=== PATIENT | female | born 1940 | race Caucasian/White ===

== ENCOUNTER 2018-04-05 09:29 | Inpatient (IN) | payer MEDICARE, OTHER, SELFPAY ==
[2018-04-05] VITALS (9 sets, daily range): BP systolic 109–177; BP diastolic 43–129; PULSE 86–116; RESP 12–18; TEMP 36.6–37.4; O2SAT 93–98; BMI 22.8; BMI 25.0
--- NOTE | 2018-04-05 09:59 | ED.DCSUM_ITS ---
- ER Visit Summary Date of Service: 04/05/18 Chief Complaint: Infected left hand dog bite History of Present Illness: The patient is a 77 F history of osteoporosis and hypothyroidism. She is not diabetic. Patient was playing with her dog last night and it accidentally bit her on the left hand. Since it has been red and swollen. She said she has had some puslike discharge. Patient is right-hand dominant. Physical Examination: Well-appearing older female. Vital signs are stable. She is afebrile. She does not look septic toxic. She is in no acute distress. HEENT exam unremarkable. Neck nontender. Lungs clear to auscultation bilaterally. Heart regular rhythm no murmur. Abdomen soft and nontender. Patient is moving all 4 extremities. She is a dog bite wound on the dorsum of her left hand by the webspace of the left thumb and index finger. The area is red and swollen. It does extend up into the forearm. There is no axillary lymphadenopathy. There are no gross bony deformities. She can flex and extend the left hand. Normal touch sensation. The left thumb index and long finger along the dorsum more red and tender. Test Results: CBC shows a white count of 20,000. H&H 14/42. 90% segs. Electrolytes unremarkable. Gap of 10. Creatinine of 1. Emergency Department Course and Treatment: Patient be started on IV Unasyn. Treatment Plan: I will speak to the hospitalist about admission. Disposition: Admission Impression: Acute left hand cellulitis status post dog bite This note was generated with [employer] dictation software. It may contain incorrect words, spelling, and punctuation that were not noted in review of the chart prior to signing ED Disposition - Plan for ED Patient: Chief Complaint: Bite Referrals: NOT,DEFINED [NON-STAFF] -
--- NOTE | 2018-04-05 10:15 | ED.RN ---
CALLED PHARMACY FOR ATKatelyn.
[2018-04-05 10:23] LABS: Absolute Lymphocyte Count 0.52 X10^3/ul (0.83-4.51); Absolute Neutrophil Count 18.5 X10^3/uL (2.0-7.7); Basophil# 0.02 X10^3/uL; Basophil% 0.1 % (0-1); Differential Indicated SCAN CRITERIA MET; Hematocrit 42.6 % (37-47); Hemoglobin 14.2 g/dl (12.0-15.0); Lymphocyte # 0.52 X10^3/ul (4.0); Lymphocyte % 2.5 % (19-41); Mean Corp Hgb Conc 33.3 g/gl (32-36); Mean Corpuscular Hgb 32.2 pg (27.0-32.0); Mean Corpuscular Volume 96.6 fL (81-99); Mean Platelet Vol. 9.7 fl (6.2-12.0); Monocyte# 1.34 X10^3/uL; Monocyte% 6.6 % (0-10); Neutrophil # 18.46 X10^3/uL (2.7-7.7); Neutrophil % 90.5 % (47-70); POSITIVE COUNT NO; POSITIVE DIFFERENTIAL YES; POSITIVE MORPHOLOGY NO; Platelet Count 265 K/mm3 (150-450); RBC Distribution Width SD 48.2 fl (35.1-43.9); Red Blood Count 4.41 M/mm3 (4.2-5.4); White Blood Count 20.4 K/mm3 (4.4-11.0)
[2018-04-05 10:32] LABS: Anion Gap 10 (5-15); BUN 15 mg/dL (7-18); BUN/Creat Ratio 14.2 RATIO (10-20); Calcium,Total 8.7 mg/dL (8.5-10.1); Chloride 102 mmol/L (98-107); Creatinine, Serum 1.06 mg/dL (0.55-1.02); EST Glomerular Filtration Rate 53 mL/min (>60); Est Glom Filt Rate - Afr Amer 64 mL/min (>60); Estimated Creatinine Clearance 34.04 ml/min; Glucose 120 mg/dL (74-106); Potassium 3.7 mmol/L (3.5-5.1); Sodium Level 136 mmol/L (136-145)
[2018-04-05 10:42] LABS: Differential Comment SCANNED
--- NOTE | 2018-04-05 10:48 | NURSING ---
DR DELMY GALVAN
--- NOTE | 2018-04-05 10:57 | NURSING ---
MED SURG OBS LT HAND CELLULITIS, S/P DOG BITE KITTOE
--- NOTE | 2018-04-05 11:03 | HP.PCM_ITS ---
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 Patient symptoms began the night prior to coming in. She was apparently bitten by her dog. According to the patient she did wash her hand with soap and applied a topical antibiotic however pain persisted throughout the whole night and upon waking up on the day of admission did notice significant swelling. She presented to the emergency department and assessment of cellulitis secondary to dog bite was made. She was started on Unasyn and admitted to regular nursing floor for further management Past Medical History Past Medical History (Chronic Problems): Chronic Problems Hypothyroidism (Chronic) Osteoporosis (Chronic) Generalized osteoarthritis of multiple sites (Chronic) Allergies nitrofurantoin [From Macrodantin] Allergy (Verified 04/05/18 09:35) Chest tightness terbinafine Adverse Reaction (Verified 04/05/18 09:35) Diarrhea Home Medications: Ambulatory Orders Medication Instructions Recorded Alendronate Sodium [Fosamax] 70 mg PO QWEEK 04/05/18 Aspirin 325 mg PO DAILY@0800 04/05/18 Cyanocobalamin (Vitamin B-12) 1,000 mcg PO DAILY 04/05/18 [B-12] Levothyroxine Sodium [Synthroid] 1 tab PO DAILY 04/05/18 Smoking Status: Unknown if ever smoked Review of Systems Constitutional: Denies: Anorexia, Chills, Fever, Night Sweats, Weight Change HEENT: Denies: Head Aches, Sinus Congestion, Sinus Drainage Cardiovascular: Denies: Chest Pain, Orthopnea, Palpitations, Paroxysmal Noc. Dyspnea Respiratory: Denies: Cough, Shortness of breath at rest, Shortness of breath upon exertion, Sputum production Gastrointestinal: Denies: Abdominal Pain, Hematemesis, Hematochezia, Nausea, Melena, Vomiting Genitourinary: Denies: Dysuria, Frequency, Hematuria, Urgency Musculoskeletal: Reports: Hand Pain, Joint Pain Skin: Denies: Rash Neurological: Denies: Focal weakness, Numbness, Tingling Psychiatric: Denies: Homicidal Ideations, Suicidal Ideations Hematologic/ Lymphatic: Denies: Easy Bruising, Easy Bleeding VTE Information - Inpt Only VTE Present on Admission: No VTE Mechan Device Prophylaxis: Knee High ELISE Hose VTE Pharm Prophylaxis ordered?: Yes Patient Problems: Active and Suspected Problems Dog bite of hand (Acute) Objective: GENERAL: cooperative HEENT: Atraumatic; moist oral mucosa EYES; Anicteric, Normal Conjunctiva NECK; supple, normal thyroid, no distended JVD. RESPIRATORY: Diminished to auscultation bilaterally, CARDIOVASCULAR: Regular S1 S2, no audible murmurs GI: soft, non-tender, normoactive bowel sounds, : No Renal angle tenderness; EXTREMITIES: Area of erythema and swelling over the dorsal surface of the for a middle finger with 3 puncture wounds involving the left hand MUSCULOSKELETAL: No Joint Tenderness; no muscle waisting NEURO: Awake; no lateralizing signs. SKIN: Described above PSYCH; Normal affect - Physical Exam Vital Signs Temp Pulse Resp BP Pulse Ox 98 F 96 12 113/68 97 04/05/18 10:33 04/05/18 10:33 04/05/18 10:33 04/05/18 10:33 04/05/18 10:33 Oxygen Delivery Method Room Air Weight: 56.699 kg Body Mass Index (BMI) 22.8 Laboratory Tests Past 24 Hrs 04/05/18 04/05/18 10:15 10:15 WBC 20.4 H RBC 4.41 Hgb 14.2 Hct 42.6 MCV 96.6 MCH 32.2 H MCHC 33.3 RDW 14.0 RDW Differential 48.2 H Plt Count 265 MPV 9.7 Immature Gran % (Auto) 0.300 Neut % (Auto) 90.5 H Lymph % (Auto) 2.5 L [place] % (Auto) 6.6 Eos % (Auto) 0.0 Baso % (Auto) 0.1 Absolute Neuts (auto) 18.5 H Absolute Lymphs (auto) 0.52 L Total Counted Not Reportable Differential Comment SCANNED Sodium 136 Potassium 3.7 Chloride 102 Carbon Dioxide 24.0 Anion Gap 10 BUN 15 Creatinine 1.06 H Estim Creat Clear Calc 34.04 Est GFR (MDRD) Af Amer 64 Est GFR (MDRD) Non-Af 53 L BUN/Creatinine Ratio 14.2 Glucose 120 H Calcium 8.7 Assessment/Plan All Active Problems Dog bite of hand (Acute) Patient is a 77-year-old lady who presented with left hand pain following a dog bite a day prior to his admission 1. Dog bite involving the left hand with resultant cellulitis: Patient has been admitted to regular nursing floor was started on the Unasyn 2. Hypothyroidism-patient is on levothyroxine home dose continued 3. Generalized osteoarthritis; pain meds as needed 4. Osteoporosis 5. DVT prophylaxis SC Lovenox Advance planning; did discuss with the patient and family regarding her advanced directives as well as CODE STATUS. Did explain the various modalities involved ( FULL CODE, DNR CCA, DNR CCA with no intubation, and DNR CC ) patient elected to be DNR CCA no intubation. Order was placed. Time spent on discussion 20 minutes. Code Visit Inpatient E&M: 80633 Subs Hosp L3 Procedures: 96988 Advncd Care Plan 30 Min
[2018-04-05] MEDS: 0.9% Normal Saline 1,000 ML 100 ML IV ×2 (13:46→23:54)
[2018-04-05] MEDS: Acetaminophen 325 MG Tablet 650 MG PO (19:58)
[2018-04-05 21:41] LABS: Bedside Glucose 106 mg/dL (70-110)
[2018-04-06 03:30] VITALS: BP 116/76; PULSE 75; RESP 16; TEMP 36.9; O2SAT 96
[2018-04-06] MEDS: Levothyroxine 75 MCG Tablet PO (06:08)
[2018-04-06 06:21] LABS: Bedside Glucose 90 mg/dL (70-110)
[2018-04-06 06:44] LABS: Absolute Lymphocyte Count 1.75 X10^3/ul (0.83-4.51); Absolute Neutrophil Count 9.5 X10^3/uL (2.0-7.7); Basophil# 0.02 X10^3/uL; Basophil% 0.2 % (0-1); Eosinophil# 0.04 X10^3/uL; Eosinophils% 0.3 % (0-5); Hematocrit 36.1 % (37-47); Hemoglobin 11.9 g/dl (12.0-15.0); Lymphocyte # 1.75 X10^3/ul (4.0); Lymphocyte % 14.1 % (19-41); Mean Corpuscular Hgb 32.2 pg (27.0-32.0); Mean Corpuscular Volume 97.8 fL (81-99); Mean Platelet Vol. 9.7 fl (6.2-12.0); Monocyte# 1.12 X10^3/uL; Neutrophil # 9.45 X10^3/uL (2.7-7.7); Neutrophil % 76.2 % (47-70); Platelet Count 225 K/mm3 (150-450); RBC Distribution Width CV 14.2 % (11.6-14.6); Red Blood Count 3.69 M/mm3 (4.2-5.4); White Blood Count 12.4 K/mm3 (4.4-11.0)
[2018-04-06 06:50] LABS: POSITIVE COUNT NO; POSITIVE DIFFERENTIAL NO; POSITIVE MORPHOLOGY NO
[2018-04-06 07:02] LABS: Anion Gap 9 (5-15); BUN 15 mg/dL (7-18); BUN/Creat Ratio 17.2 RATIO (10-20); Calcium,Total 7.9 mg/dL (8.5-10.1); Chloride 114 mmol/L (98-107); Creatinine, Serum 0.87 mg/dL (0.55-1.02); EST Glomerular Filtration Rate 67 mL/min (>60); Est Glom Filt Rate - Afr Amer 81 mL/min (>60); Estimated Creatinine Clearance 41.47 ml/min; Glucose 87 mg/dL (74-106); Potassium 3.8 mmol/L (3.5-5.1); Sodium Level 144 mmol/L (136-145)
--- NOTE | 2018-04-06 07:31 | PN_ITS ---
Patient Problems: Active and Suspected Problems Dog bite of hand (Acute) Subjective: Patient seen reports decrease in size of the erythematous area and swelling involving the dorsal surface of the left hand. Her WBC count is also trending down Objective: GENERAL: cooperative HEENT: Atraumatic; moist oral mucosa EYES; Anicteric, Normal Conjunctiva NECK; supple, normal thyroid, no distended JVD. RESPIRATORY: Diminished to auscultation bilaterally, CARDIOVASCULAR: Regular S1 S2, no audible murmurs GI: soft, non-tender, normoactive bowel sounds, : No Renal angle tenderness; EXTREMITIES: Area of erythema and swelling over the dorsal surface of the for a middle finger with 3 puncture wounds involving the left hand MUSCULOSKELETAL: No Joint Tenderness; no muscle waisting NEURO: Awake; no lateralizing signs. SKIN: Described above PSYCH; Normal affect Vitals/I&O's: Vital Signs Temp Pulse Resp BP Pulse Ox 98.4 F 75 16 116/76 96 04/06/18 03:30 04/06/18 03:30 04/06/18 03:30 04/06/18 03:30 04/06/18 03:30 Oxygen Delivery Method Room Air Weight: 62.142 kg Body Mass Index (BMI) 25.0 Intake and Output for Last 24 Hours 04/04/18 04/05/18 04/06/18 23:59 23:59 23:59 Intake Total 1583 / 1583 847 / 847 Balance 1583 / 1583 847 / 847 Laboratory Results 04/05/18 10:15: WBC 20.4 H, RBC 4.41, Hgb 14.2, Hct 42.6, MCV 96.6, MCH 32.2 H, MCHC 33.3, RDW 14.0, RDW Differential 48.2 H, Plt Count 265, MPV 9.7, Immature Gran % (Auto) 0.300, Neut % (Auto) 90.5 H, Lymph % (Auto) 2.5 L, [place] % (Auto) 6.6, Eos % (Auto) 0.0, Baso % (Auto) 0.1, Absolute Neuts (auto) 18.5 H, Absolute Lymphs (auto) 0.52 L, Total Counted Not Reportable, Differential Comment SCANNED 04/05/18 10:15: Sodium 136, Potassium 3.7, Chloride 102, Carbon Dioxide 24.0, Anion Gap 10, BUN 15, Creatinine 1.06 H, Estim Creat Clear Calc 34.04, Est GFR (MDRD) Af Amer 64, Est GFR (MDRD) Non-Af 53 L, BUN/Creatinine Ratio 14.2, Glucose 120 H, Calcium 8.7 04/05/18 21:33: POC Glucose 106 04/06/18 06:14: POC Glucose 90 04/06/18 06:30: WBC 12.4 H, RBC 3.69 L, Hgb 11.9 L, Hct 36.1 L, MCV 97.8, MCH 32.2 H, MCHC 33.0, RDW 14.2, RDW Differential 49.0 H, Plt Count 225, MPV 9.7, Immature Gran % (Auto) 0.200, Neut % (Auto) 76.2 H, Lymph % (Auto) 14.1 L, [place] % (Auto) 9.0, Eos % (Auto) 0.3, Baso % (Auto) 0.2, Absolute Neuts (auto) 9.5 H, Absolute Lymphs (auto) 1.75, Total Counted Not Reportable 04/06/18 06:30: Sodium 144, Potassium 3.8, Chloride 114 H, Carbon Dioxide 21.0, Anion Gap 9, BUN 15, Creatinine 0.87, Estim Creat Clear Calc 41.47, Est GFR (MDRD) Af Amer 81, Est GFR (MDRD) Non-Af 67, BUN/Creatinine Ratio 17.2, Glucose 87, Calcium 7.9 L Current Medications Acetaminophen (Tylenol) 650 mg PO Q6H PRN PRN PRN Reason: Mild Pain (1-3)/Temp > 100.7 F Last Admin: 04/05/18 19:58 Dose: 650 mg Al Hydroxide/Mg Hydroxide (Mylanta Ii) 30 ml PO Q6H PRN PRN PRN Reason: Gastric burning Aspirin (Aspirin) 325 mg PO DAILY@0800 [facility] Dextrose (D50w Syringe) 0 gm IV X1 PRN; Protocol PRN Reason: Hypoglycemia Enoxaparin Sodium (Lovenox) 40 mg SC DAILY@1000 [facility] Glucagon () 1 mg IM .X1 PRN PRN Reason: Hypoglycemia Sodium Chloride () 1,000 mls @ 100 mls/hr IV .Q10H [facility] Last Admin: 04/05/18 23:54 Dose: 100 mls/hr Ampicillin Sodium/Sulbactam (Sodium 3 gm/ Sodium Chloride) 112 mls @ 150 mls/hr IV Q8 [facility] Last Admin: 04/06/18 06:08 Dose: 150 mls/hr Levothyroxine Sodium (Synthroid) 75 mcg PO DAILY@0600 [facility] Last Admin: 04/06/18 06:08 Dose: 75 mcg Magnesium Hydroxide (Milk Of Magnesia) 30 ml PO DAILY PRN PRN PRN Reason: Constipation Morphine Sulfate () 2 - 4 mg IV Q4H PRN PRN PRN Reason: MOD-SEVERE PAIN (4-10/10) Ondansetron HCl (Zofran) 4 mg IV Q8H PRN PRN PRN Reason: NAUSEA Oxycodone HCl (Oxyir) 5 - 10 mg PO Q4H PRN PRN PRN Reason: MOD-SEVERE PAIN (4-10/10) Psyllium Hydrophilic Mucilloid (Metamucil) 1 packet PO DAILY PRN PRN PRN Reason: CONSTIPATION Zolpidem Tartrate (Ambien (Generic)) 5 mg PO QHS PRN PRN PRN Reason: INSOMNIA Medical Necessity - Tobacco Use Smoking Status: Unknown if ever smoked Assessment/Plan All Active Problems Dog bite of hand (Acute) Patient is a 77-year-old lady who presented with left hand pain following a dog bite a day prior to his admission 1. Dog bite involving the left hand with resultant cellulitis: Patient has been admitted to regular nursing floor was started on the Unasyn. Patient appears to be continue treatment. Cultures were sent on 04/05/2018 awaiting results 2. Hypothyroidism-patient is on levothyroxine home dose continued 3. Generalized osteoarthritis; pain meds as needed 4. Osteoporosis 5. DVT prophylaxis SC Lovenox Code Visit Inpatient E&M: 67069 Subs Hosp L2
[2018-04-06 08:29] VITALS: BP 144/74; PULSE 92; RESP 18; TEMP 37.3; O2SAT 96
[2018-04-06] MEDS: Aspirin 325 MG Tablet PO (08:47)
--- NOTE | 2018-04-06 10:00 | CM.UR ---
See egg packer. Met face to face with patient and her . Introduced myself and my role here at [facility]. Agreed to assessment at this time. Has LW and DPOA at home. Verb understanding to bring in to hospital. She was given list of local doctors. States she doesn't want to go to [facility] and plans to come to [facility] instead of [facility] so will establish with [place] provider. Denies anticipating any further needs for discharged. Instructed that case management will remain available should any needs arise. Verb understanding. Serena Reese, RN, [facility].
[2018-04-06] MEDS: Enoxaparin 40 MG/0.4 ML Syringe SC (10:45)
[2018-04-06] MEDS: 0.9% Normal Saline 1,000 ML 100 ML IV ×2 (10:47→22:20)
[2018-04-06 14:30] VITALS: BP 128/68; PULSE 81; RESP 16; TEMP 37; O2SAT 96
[2018-04-06] MEDS: Acetaminophen 325 MG Tablet 650 MG PO (14:42)
[2018-04-06 20:00] VITALS: RESP 15
[2018-04-06 20:30] VITALS: BP 147/83; PULSE 73; RESP 15; TEMP 36.8; O2SAT 97
[2018-04-07 02:00] VITALS: RESP 15
[2018-04-07 05:07] VITALS: BP 145/89; PULSE 84; RESP 15; TEMP 37.1; O2SAT 98
[2018-04-07] MEDS: Levothyroxine 75 MCG Tablet PO (05:39)
--- NOTE | 2018-04-07 08:43 | PCM.PN.HOSP ---
Patient Problems: Active and Suspected Problems Dog bite of hand (Acute) Subjective: Patient seen has some residual swelling involving the dorsal surface of the left hand. Cultures obtained on admission so far positive for gram-negative rods final identification and sensitivities pending Objective: GENERAL: cooperative HEENT: Atraumatic; moist oral mucosa EYES; Anicteric, Normal Conjunctiva NECK; supple, normal thyroid, no distended JVD. RESPIRATORY: Diminished to auscultation bilaterally, CARDIOVASCULAR: Regular S1 S2, no audible murmurs GI: soft, non-tender, normoactive bowel sounds, : No Renal angle tenderness; EXTREMITIES: Area of erythema and swelling over the dorsal surface of the for a middle finger with 3 puncture wounds involving the left hand; swelling generally decreasing MUSCULOSKELETAL: Movement restricted in the left fingers NEURO: Awake; no lateralizing signs. SKIN: Described above PSYCH; Normal affect Vitals/I&O's: Vital Signs Temp Pulse Resp BP Pulse Ox 98.7 F 84 15 145/89 H 98 04/07/18 05:07 04/07/18 05:07 04/07/18 05:07 04/07/18 05:07 04/07/18 05:07 Oxygen Delivery Method Room Air Weight: 62.142 kg Body Mass Index (BMI) 25.0 Intake and Output for Last 24 Hours 04/05/18 04/06/18 04/07/18 23:59 23:59 23:59 Intake Total 1583 / 1583 2995 / 2995 1415 / 1415 Balance 1583 / 1583 2995 / 2995 1415 / 1415 Microbiology Past 72 Hours 04/05/18 17:35 Bite, Dog Gram Stain - Final 04/05/18 17:35 Bite, Dog Wound Culture - Preliminary Gram negative davion Current Medications Acetaminophen (Tylenol) 650 mg PO Q6H PRN PRN PRN Reason: Mild Pain (1-3)/Temp > 100.7 F Last Admin: 04/06/18 14:42 Dose: 650 mg Al Hydroxide/Mg Hydroxide (Mylanta Ii) 30 ml PO Q6H PRN PRN PRN Reason: Gastric burning Aspirin (Aspirin) 325 mg PO DAILY@0800 [facility] Last Admin: 04/06/18 08:47 Dose: 325 mg Enoxaparin Sodium (Lovenox) 40 mg SC DAILY@1000 [facility] Last Admin: 04/06/18 10:45 Dose: 40 mg Sodium Chloride () 1,000 mls @ 100 mls/hr IV .Q10H [facility] Last Admin: 04/06/18 22:20 Dose: 100 mls/hr Ampicillin Sodium/Sulbactam (Sodium 3 gm/ Sodium Chloride) 112 mls @ 150 mls/hr IV Q8 [facility] Last Admin: 04/07/18 05:10 Dose: 150 mls/hr Levothyroxine Sodium (Synthroid) 75 mcg PO DAILY@0600 [facility] Last Admin: 04/07/18 05:39 Dose: 75 mcg Magnesium Hydroxide (Milk Of Magnesia) 30 ml PO DAILY PRN PRN PRN Reason: Constipation Morphine Sulfate () 2 - 4 mg IV Q4H PRN PRN PRN Reason: MOD-SEVERE PAIN (4-1010) Ondansetron HCl (Zofran) 4 mg IV Q8H PRN PRN PRN Reason: NAUSEA Oxycodone HCl (Oxyir) 5 - 10 mg PO Q4H PRN PRN PRN Reason: MOD-SEVERE PAIN (4-1010) Psyllium Hydrophilic Mucilloid (Metamucil) 1 packet PO DAILY PRN PRN PRN Reason: CONSTIPATION Zolpidem Tartrate (Ambien (Generic)) 5 mg PO QHS PRN PRN PRN Reason: INSOMNIA Medical Necessity - Tobacco Use Smoking Status: Unknown if ever smoked Assessment/Plan All Active Problems Dog bite of hand (Acute) Patient is a 77-year-old lady who presented with left hand pain following a dog bite a day prior to his admission 1. Dog bite involving the left hand with resultant cellulitis: Patient has been admitted to regular nursing floor was started on the Unasyn. Patient appears to be continue treatment. Cultures were sent on 04/05/2018 result so far positive for gram-negative rods final identification and sensitivities pending 2. Hypothyroidism-patient is on levothyroxine home dose continued 3. Generalized osteoarthritis; pain meds as needed 4. Osteoporosis 5. DVT prophylaxis SC Lovenox Microbiology 04/05/18 17:35 Gram Stain - Final Bite, Dog Wound Culture - Preliminary Gram negative davion Active Medications Acetaminophen (Tylenol) 650 mg PO Q6H PRN PRN PRN Reason: Mild Pain (1-3)/Temp > 100.7 F Last Admin: 04/06/18 14:42 Dose: 650 mg Al Hydroxide/Mg Hydroxide (Mylanta Ii) 30 ml PO Q6H PRN PRN PRN Reason: Gastric burning Aspirin (Aspirin) 325 mg PO DAILY@0800 [facility] Last Admin: 04/06/18 08:47 Dose: 325 mg Enoxaparin Sodium (Lovenox) 40 mg SC DAILY@1000 [facility] Last Admin: 04/06/18 10:45 Dose: 40 mg Sodium Chloride () 1,000 mls @ 100 mls/hr IV .Q10H [facility] Last Admin: 04/06/18 22:20 Dose: 100 mls/hr Ampicillin Sodium/Sulbactam (Sodium 3 gm/ Sodium Chloride) 112 mls @ 150 mls/hr IV Q8 [facility] Last Admin: 04/07/18 05:10 Dose: 150 mls/hr Levothyroxine Sodium (Synthroid) 75 mcg PO DAILY@0600 [facility] Last Admin: 04/07/18 05:39 Dose: 75 mcg Magnesium Hydroxide (Milk Of Magnesia) 30 ml PO DAILY PRN PRN PRN Reason: Constipation Morphine Sulfate () 2 - 4 mg IV Q4H PRN PRN PRN Reason: MOD-SEVERE PAIN (4-10/10) Ondansetron HCl (Zofran) 4 mg IV Q8H PRN PRN PRN Reason: NAUSEA Oxycodone HCl (Oxyir) 5 - 10 mg PO Q4H PRN PRN PRN Reason: MOD-SEVERE PAIN (4-10/10) Psyllium Hydrophilic Mucilloid (Metamucil) 1 packet PO DAILY PRN PRN PRN Reason: CONSTIPATION Zolpidem Tartrate (Ambien (Generic)) 5 mg PO QHS PRN PRN PRN Reason: INSOMNIA Code Visit Inpatient E&M: 47624 Subs Hosp L2
[2018-04-07] MEDS: Aspirin 325 MG Tablet PO (08:53)
[2018-04-07] MEDS: 0.9% Normal Saline 1,000 ML 100 ML IV (08:53)
[2018-04-07] MEDS: Enoxaparin 40 MG/0.4 ML Syringe SC (08:53)
[2018-04-07 08:56] VITALS: BP 147/86; PULSE 82; RESP 18; TEMP 37.1; O2SAT 97
--- NOTE | 2018-04-07 09:06 | PCA ---
RN IN WITH PT
[2018-04-07 09:20] VITALS: PULSE 89
[2018-04-07 14:17] VITALS: BP 132/72; PULSE 81; RESP 16; TEMP 37; O2SAT 95
[2018-04-07] MEDS: Acetaminophen 325 MG Tablet 650 MG PO (18:34)
[2018-04-07 20:34] VITALS: BP 143/84; PULSE 75; RESP 16; TEMP 37.1; O2SAT 97
[2018-04-08 03:31] VITALS: BP 155/72; PULSE 71; RESP 16; TEMP 36.6; O2SAT 95
[2018-04-08] MEDS: Levothyroxine 75 MCG Tablet PO (06:15)
[2018-04-08 08:20] VITALS: BP 156/97; PULSE 93; RESP 16; TEMP 37.1; O2SAT 98
[2018-04-08] MEDS: Acetaminophen 325 MG Tablet 650 MG PO (08:23)
[2018-04-08] MEDS: Aspirin 325 MG Tablet PO (08:24)
--- NOTE | 2018-04-08 09:14 | PCM.PN.HOSP ---
Patient Problems: Active and Suspected Problems Dog bite of hand (Acute) Subjective: Patient was seen and examined. Pain in the left hand is controlled. Reports feeling a little depressed. Denies any fever or chills or chest pain or palpitations. Vitals/I&O's: Vital Signs Temp Pulse Resp BP Pulse Ox 98.8 F 93 16 156/97 H 98 04/08/18 08:20 04/08/18 08:20 04/08/18 08:20 04/08/18 08:20 04/08/18 08:20 Oxygen Delivery Method Room Air Weight: 62.142 kg Body Mass Index (BMI) 25.0 Intake and Output for Last 24 Hours 04/06/18 04/07/18 04/08/18 23:59 23:59 23:59 Intake Total 2995 / 2995 3615 / 3615 497 / 497 Balance 2995 / 2995 3615 / 3615 497 / 497 General: Alert, Oriented x3, Cooperative, No apparent distress HEENT: Atraumatic, PERRLA, EOMI, Normocephalic Oral: Moist Mucosa Neck: Supple, No JVD Lungs: Clear to auscultation, Normal air movement Cardiovascular: Regular rate, Regular Rhythm, Normal S1, Normal S2, No murmurs Abdomen: Bowel Sounds Present, Soft, Non Tender, Non-Distended, No Hepato-splenomegaly Extremities: Edema - Left hand and wrist region are erythematous and swollen, skin demarcated, erythema not worsening, wrinkles seen on the skin indicating resolving edema. There is an area on the lateral aspect of the second metatarsal region that has a pinpoint area of scabbing with underlining purulent region, slightly fluctuant Skin: - - See note under extremities Musculoskeletal: No Tenderness to Palpation of Joints or Extremities, - - Srikanth deformities of the joints of the hand, ?ulnar deviation of both hands Neurological: Cranial nerves II-XII grossly intact, Neuro grossly intact Psych/Mental Status: Normal Affect, Appropriate Microbiology Past 72 Hours 04/05/18 17:35 Bite, Dog Gram Stain - Final 04/05/18 17:35 Bite, Dog Wound Culture - Final Acinetobacter Lwoffi Pasteurella multocida 04/05/18 12:53 Blood Culture (Wb) - No Site/Description Given Blood Culture - Preliminary No growth in 48 hours. 04/05/18 12:45 Blood Culture (Wb) - Anticubital Right Blood Culture - Preliminary No growth in 48 hours. Current Medications Acetaminophen (Tylenol) 650 mg PO Q6H PRN PRN PRN Reason: Mild Pain (1-3)/Temp > 100.7 F Last Admin: 04/08/18 08:23 Dose: 650 mg Al Hydroxide/Mg Hydroxide (Mylanta Ii) 30 ml PO Q6H PRN PRN PRN Reason: Gastric burning Aspirin (Aspirin) 325 mg PO DAILY@0800 [facility] Last Admin: 04/08/18 08:24 Dose: 325 mg Enoxaparin Sodium (Lovenox) 40 mg SC DAILY@1000 [facility] Last Admin: 04/07/18 08:53 Dose: 40 mg Ampicillin Sodium/Sulbactam (Sodium 3 gm/ Sodium Chloride) 112 mls @ 150 mls/hr IV Q8 [facility] Last Admin: 04/08/18 06:09 Dose: 150 mls/hr Sodium Chloride () 1,000 mls @ 15 mls/hr IV .Q48H [facility] Sodium Chloride () 250 mls @ 15 mls/hr IV .[id number] PRN PRN Reason: SALINE FLUSH Levothyroxine Sodium (Synthroid) 75 mcg PO DAILY@0600 [facility] Last Admin: 04/08/18 06:15 Dose: 75 mcg Magnesium Hydroxide (Milk Of Magnesia) 30 ml PO DAILY PRN PRN PRN Reason: Constipation Morphine Sulfate () 2 - 4 mg IV Q4H PRN PRN PRN Reason: MOD-SEVERE PAIN (4-10/10) Ondansetron HCl (Zofran) 4 mg IV Q8H PRN PRN PRN Reason: NAUSEA Oxycodone HCl (Oxyir) 5 - 10 mg PO Q4H PRN PRN PRN Reason: MOD-SEVERE PAIN (4-10/10) Psyllium Hydrophilic Mucilloid (Metamucil) 1 packet PO DAILY PRN PRN PRN Reason: CONSTIPATION Sodium Chloride () 5 - 15 ml IV UD PRN PRN Reason: SALINE FLUSH Zolpidem Tartrate (Ambien (Generic)) 5 mg PO QHS PRN PRN PRN Reason: INSOMNIA Medical Necessity - Tobacco Use Smoking Status: Unknown if ever smoked Assessment/Plan All Active Problems Dog bite of hand (Acute) 77-year-old female who was admitted with 1 day history of left hand pain and swelling following a dog bite. 1. Left hand Acinetobacter/Pasteurella multocida cellulitis secondary to dog bite, an area of possible abscess Wound cultures growing the above, these are pansensitive. Vitals are stable, no fevers seen, white cell count has improved 20.4-12.4, on IV Unasyn Plastic surgery Dr. Flower consulted, continue on the above antibiotics pending his recommendations, continue with elevation of the upper extremity 2. Hypothyroidism, on levothyroxine 3. Arthritis, possible osteo-arthritis versus rheumatoid arthritis, patient will need to follow-up with the outpatient with primary care doctor or business process associate 4. Osteoporosis, on alendronate 5. DVT prophylaxis SC Lovenox 6. Disposition: Possible DC in am if she continues to improve. Code Visit Inpatient E&M: 04616 Subs Hosp L2
--- NOTE | 2018-04-08 09:19 | PN_ITS ---
Patient Problems: Active and Suspected Problems Dog bite of hand (Acute) Subjective: Patient was seen and examined. Pain in the left hand is controlled. Reports feeling a little depressed. Denies any fever or chills or chest pain or palpitations. Vitals/I&O's: Vital Signs Temp Pulse Resp BP Pulse Ox 98.8 F 93 16 156/97 H 98 04/08/18 08:20 04/08/18 08:20 04/08/18 08:20 04/08/18 08:20 04/08/18 08:20 Oxygen Delivery Method Room Air Weight: 62.142 kg Body Mass Index (BMI) 25.0 Intake and Output for Last 24 Hours 04/06/18 04/07/18 04/08/18 23:59 23:59 23:59 Intake Total 2995 / 2995 3615 / 3615 497 / 497 Balance 2995 / 2995 3615 / 3615 497 / 497 General: Alert, Oriented x3, Cooperative, No apparent distress HEENT: Atraumatic, PERRLA, EOMI, Normocephalic Oral: Moist Mucosa Neck: Supple, No JVD Lungs: Clear to auscultation, Normal air movement Cardiovascular: Regular rate, Regular Rhythm, Normal S1, Normal S2, No murmurs Abdomen: Bowel Sounds Present, Soft, Non Tender, Non-Distended, No Hepato- splenomegaly Extremities: Edema - Left hand and wrist region are erythematous and swollen, skin demarcated, erythema not worsening, wrinkles seen on the skin indicating resolving edema. There is an area on the lateral aspect of the second metatarsal region that has a pinpoint area of scabbing with underlining purulent region, slightly fluctuant Skin: - - See note under extremities Musculoskeletal: No Tenderness to Palpation of Joints or Extremities, - - Srikanth deformities of the joints of the hand, ?ulnar deviation of both hands Neurological: Cranial nerves II-XII grossly intact, Neuro grossly intact Psych/Mental Status: Normal Affect, Appropriate Microbiology Past 72 Hours 04/05/18 17:35 Bite, Dog Gram Stain - Final 04/05/18 17:35 Bite, Dog Wound Culture - Final Acinetobacter Lwoffi Pasteurella multocida 04/05/18 12:53 Blood Culture (Wb) - No Site/Description Given Blood Culture - Preliminary No growth in 48 hours. 04/05/18 12:45 Blood Culture (Wb) - Anticubital Right Blood Culture - Preliminary No growth in 48 hours. Current Medications Acetaminophen (Tylenol) 650 mg PO Q6H PRN PRN PRN Reason: Mild Pain (1-3)/Temp > 100.7 F Last Admin: 04/08/18 08:23 Dose: 650 mg Al Hydroxide/Mg Hydroxide (Mylanta Ii) 30 ml PO Q6H PRN PRN PRN Reason: Gastric burning Aspirin (Aspirin) 325 mg PO DAILY@0800 [facility] Last Admin: 04/08/18 08:24 Dose: 325 mg Enoxaparin Sodium (Lovenox) 40 mg SC DAILY@1000 [facility] Last Admin: 04/07/18 08:53 Dose: 40 mg Ampicillin Sodium/Sulbactam (Sodium 3 gm/ Sodium Chloride) 112 mls @ 150 mls/hr IV Q8 [facility] Last Admin: 04/08/18 06:09 Dose: 150 mls/hr Sodium Chloride () 1,000 mls @ 15 mls/hr IV .Q48H [facility] Sodium Chloride () 250 mls @ 15 mls/hr IV .[id number] PRN PRN Reason: SALINE FLUSH Levothyroxine Sodium (Synthroid) 75 mcg PO DAILY@0600 [facility] Last Admin: 04/08/18 06:15 Dose: 75 mcg Magnesium Hydroxide (Milk Of Magnesia) 30 ml PO DAILY PRN PRN PRN Reason: Constipation Morphine Sulfate () 2 - 4 mg IV Q4H PRN PRN PRN Reason: MOD-SEVERE PAIN (4-10/10) Ondansetron HCl (Zofran) 4 mg IV Q8H PRN PRN PRN Reason: NAUSEA Oxycodone HCl (Oxyir) 5 - 10 mg PO Q4H PRN PRN PRN Reason: MOD-SEVERE PAIN (4-10/10) Psyllium Hydrophilic Mucilloid (Metamucil) 1 packet PO DAILY PRN PRN PRN Reason: CONSTIPATION Sodium Chloride () 5 - 15 ml IV UD PRN PRN Reason: SALINE FLUSH Zolpidem Tartrate (Ambien (Generic)) 5 mg PO QHS PRN PRN PRN Reason: INSOMNIA Medical Necessity - Tobacco Use Smoking Status: Unknown if ever smoked Assessment/Plan All Active Problems Dog bite of hand (Acute) 77-year-old female who was admitted with 1 day history of left hand pain and swelling following a dog bite. 1. Left hand Acinetobacter/Pasteurella multocida cellulitis secondary to dog bite, an area of possible abscess Wound cultures growing the above, these are pansensitive. Vitals are stable, no fevers seen, white cell count has improved 20.4-12.4, on IV Unasyn Plastic surgery Dr. Flower consulted, continue on the above antibiotics pending his recommendations, continue with elevation of the upper extremity 2. Hypothyroidism, on levothyroxine 3. Arthritis, possible osteo-arthritis versus rheumatoid arthritis, patient will need to follow-up with the outpatient with primary care doctor or gl accountant 4. Osteoporosis, on alendronate 5. DVT prophylaxis SC Lovenox 6. Disposition: Possible DC in am if she continues to improve. Code Visit Inpatient E&M: 40844 Subs Hosp L2
[2018-04-08] MEDS: Enoxaparin 40 MG/0.4 ML Syringe SC (10:53)
[2018-04-08] MEDS: 0.9% Normal Saline 1,000 ML 15 ML IV (10:55)
[2018-04-08 14:20] VITALS: BP 141/88; PULSE 94; RESP 16; TEMP 37.2; O2SAT 98
--- NOTE | 2018-04-08 15:03 | CHAPLAIN ---
Type of Pastoral Visit _x__ Initial Visit ___ Follow-up Visit ___ On-call Visit ___ General Patient Visit ___ Spiritual Assessment ___ Family Conference ___ Bereavement ___ Rapid Response ___ Code Blue ___ Other (describe below) Pastoral Care Referral From _x__ Patient ___ Family ___ Nurse ___ Physician ___ Foot Roentgenologist ___ Building Contractor ___ Other (describe below) Sacrament/Intervention _x__ Active listening ___ Anointing ___ Lutheran ___ Bereavement ___ Communion ___ Josie exploration ___ ___ Life review _x__ Prayer ___ Reconciliation ___ Sacrament of Sick ___ Supportive presence ___ Wedding ___ Other (describe below) Pastoral Comments
[2018-04-08 22:08] VITALS: BP 151/91; PULSE 73; RESP 16; TEMP 36.7; O2SAT 98
[2018-04-09] MEDS: Levothyroxine 75 MCG Tablet PO (05:08)
[2018-04-09 05:16] VITALS: BP 159/93; PULSE 86; RESP 16; TEMP 36.9; O2SAT 96
[2018-04-09] MEDS: Acetaminophen 325 MG Tablet 650 MG PO (07:38)
[2018-04-09] MEDS: Aspirin 325 MG Tablet PO (07:39)
[2018-04-09 07:42] VITALS: O2SAT 95
--- NOTE | 2018-04-09 08:16 | DCINST_ITS ---
- Discharge Diagnoses Current Active Problems: Current Active and Chronic Problems Dog bite of hand (Acute) Hypothyroidism (Chronic) Osteoporosis (Chronic) Generalized osteoarthritis of multiple sites (Chronic) Reason(s) for Visit for Discharge Instructions: Dog bite You will use the following diet at home:: Regular Your food should be the consistency of: Regular Your liquids should be the consistency of: Regular/Thin Discharge Activity: Return to Normal Activity Additional Instructions: Take 2 tablets of extra strength tylenol(500mg) every 8 hours as needed for pain. Keep your dressing clean and dry. Complete antibiotics. Follow-up with Dr. Flower on 04/11/18. Allergies/Adverse Reactions: Allergies nitrofurantoin [From Macrodantin] Allergy (Verified 04/05/18 09:35) Chest tightness terbinafine Adverse Reaction (Verified 04/05/18 09:35) Diarrhea Medications to take at Discharge Alendronate Sodium [Fosamax] 70 mg PO QWEEK 04/05/18 Aspirin 325 mg PO DAILY@0800 04/05/18 Cyanocobalamin (Vitamin B-12) [B-12] 1,000 mcg PO DAILY 04/05/18 Levothyroxine Sodium [Synthroid] 1 tab PO DAILY 04/05/18 Acetaminophen [Tylenol Tablet] 650 mg PO Q6H PRN PRN tablet 04/09/18 Amox/Clavulanate Tablet [Augmentin Tablet] 875 mg PO Q12H #10 tablet 04/09/18 Ciprofloxacin [Cipro] 500 mg PO BID #10 tablet 04/09/18 The following prescriptions were given: Amox/Clavulanate Tablet [Augmentin Tablet] 875 mg PO Q12H #10 tablet Ciprofloxacin [Cipro] 500 mg PO BID #10 tablet Primary Care Physician: NOT,DEFINED [NON-STAFF] - Please follow up with your Primary Care Physician in: within 2 weeks of discharge Test Results: Test results from this visit will be discussed in further detail at your follow- up appointment, if applicable. Please Follow Up With: Drew Flower MD When: in 2 days Proposed Discharge Date: 04/09/18
--- NOTE | 2018-04-09 08:16 | DS.PCM_ITS ---
Discharge Date and Diagnosis Date of Admission: 04/05/18 Date of Discharge: 04/09/18 - Primary Discharge Diagnosis Active and Suspected Problems Dog bite of hand (Acute) Left hand Acinetobacter/Pasteurella multocida cellulitis with possible abscess - Secondary Discharge Diagnosis Chronic Problems Hypothyroidism (Chronic) Osteoporosis (Chronic) Generalized osteoarthritis of multiple sites (Chronic) Hospital Course and Treatment None Operations: None Procedures: None Summary of Care Provided: 77-year-old female who was admitted with 1 day history of left hand pain and swelling following a dog bite. 1. Left hand Acinetobacter/Pasteurella multocida cellulitis secondary to dog bite, an area of possible abscess Wound cultures growing the above, pansensitive. Managed on IV Unasyn, discharged on Augmentin and Cipro for 6 more days, given a total of 10 days of antibiotics. Patient was asked to follow-up with Dr. Flower in the outpatient. 2. Hypothyroidism, on levothyroxine 3. Arthritis, possible osteo-arthritis versus rheumatoid arthritis, patient will need to follow-up with the outpatient with primary care doctor or respiratory services manager 4. Osteoporosis, on alendronate Subjective: On the day of discharge, she felt improved, no fever or chills. Swelling in the left arm is improved. Objective: General: Alert, Oriented x3, Cooperative, No apparent distress HEENT: Atraumatic, PERRLA, EOMI, Normocephalic Oral: Moist Mucosa Neck: Supple, No JVD Lungs: Clear to auscultation, Normal air movement Cardiovascular: Regular rate, Regular Rhythm, Normal S1, Normal S2, No murmurs Abdomen: Bowel Sounds Present, Soft, Non Tender, Non-Distended, No Hepato- splenomegaly Extremities: Edema - Left hand and wrist region are erythematous and swollen, skin demarcated, erythema not worsening, wrinkles seen on the skin indicating resolving edema. There is an area on the lateral aspect of the second metacarpo-phalangeal region that has a pinpoint area of scabbing with underlining purulent region, slightly fluctuant Skin: - - See note under extremities Musculoskeletal: No Tenderness to Palpation of Joints or Extremities, - - Srikanth deformities of the joints of the hand, ?ulnar deviation of both hands Neurological: Cranial nerves II-XII grossly intact, Neuro grossly intact Psych/Mental Status: Normal Affect, Appropriate Under sterile precautions, patient's left 2nd metacarpophalangeal region area of fluctuance and purulence with overlying area of scab was de-roofed with non- tooth dissecting forceps with subsequent seropurulent discharge from wound, which was expressed. Sterile dressing applied. - Physical Exam Vital Signs Temp Pulse Resp BP Pulse Ox 98.4 F 86 16 159/93 H 95 04/09/18 05:16 04/09/18 05:16 04/09/18 05:16 04/09/18 05:16 04/09/18 07:42 Oxygen Delivery Method Room Air Weight: 62.142 kg Body Mass Index (BMI) 25.0 Intake and Output for Last 24 Hours 04/07/18 04/08/18 04/09/18 23:59 23:59 23:59 Intake Total 3615 / 3615 3054 / 3054 195 / 195 Balance 3615 / 3615 3054 / 3054 195 / 195 Microbiology Past 72 Hours 04/05/18 17:35 Gram Stain - Final Bite, Dog Wound Culture - Final Acinetobacter Lwoffi Pasteurella multocida 04/05/18 12:53 Blood Culture - Preliminary Blood Culture (Wb) - No Site/Description Given No growth in 48 hours. 04/05/18 12:45 Blood Culture - Preliminary Blood Culture (Wb) - Anticubital Right No growth in 48 hours. Discharge Diet: No Restrictions Discharge Activity: Return to Normal Activity Home Medications: Medications to take at Discharge Alendronate Sodium [Fosamax] 70 mg PO QWEEK 04/05/18 Aspirin 325 mg PO DAILY@0800 04/05/18 Cyanocobalamin (Vitamin B-12) [B-12] 1,000 mcg PO DAILY 04/05/18 Levothyroxine Sodium [Synthroid] 1 tab PO DAILY 04/05/18 Acetaminophen [Tylenol Tablet] 650 mg PO Q6H PRN PRN tablet 04/09/18 Amox/Clavulanate Tablet [Augmentin Tablet] 875 mg PO Q12H #12 tablet 04/09/18 Ciprofloxacin [Cipro] 500 mg PO BID #12 tablet 04/09/18 Following Prescrptions Were Given to Patient: Amox/Clavulanate Tablet [Augmentin Tablet] 875 mg PO Q12H #12 tablet Ciprofloxacin [Cipro] 500 mg PO BID #12 tablet Primary Care Physician: NOT,DEFINED [NON-STAFF] - Please follow up with your Primary Care Physician in: within 2 weeks of discharge Please Follow Up With: Drew Flower MD When: in 2 days Disposition: Home Minutes spent on discharge:: 40 Patient Condition:: Stable Medical Necessity - Tobacco Use Smoking Status: Unknown if ever smoked Tobacco Use: Non-smoker Meaningful Use Info Meaningful Use Diagnoses (Choose all that apply): None applicable Code Visit Inpatient E&M: 86923 Disch Hosp
[2018-04-09] MEDS: Amox/Clavulanate 875 MG Tablet PO (10:23)
[2018-04-09] MEDS: Ciprofloxacin 500 MG Tablet PO (10:23)
[2018-04-09 10:38] VITALS: BP 131/60; PULSE 84; RESP 18; TEMP 37.1; O2SAT 98
== END 2018-04-09 10:32 | disposition home or self-care (01) | DRG 868 ==
LOC: ED 11:06 → MS2 11:11 → MS3 04-07 15:19
PROVIDERS: Admitting Provider Internal Medicine; Emergency Provider Emergency Medicine; Visit Provider Internal Medicine
DX: A28.0 Pasteurellosis (principal); L03.114 Cellulitis of left upper limb; L02.512 Cutaneous abscess of left hand; S61.452A Open bite of left hand, initial encounter; W54.0XXA Bitten by dog, initial encounter; B96.89 Other specified bacterial agents as the cause of diseases classified elsewhere; E03.9 Hypothyroidism, unspecified; M81.0 Age-related osteoporosis without current pathological fracture; M15.9 Polyosteoarthritis, unspecified; Z66 Do not resuscitate; Z79.83 Long term (current) use of bisphosphonates
CPT/HCPCS: 36415; 80048; 82962; 85025; 87040; 87070; 87075; 87077; 87186; 87205; 99251; 99281; J7030; A4216; G0463; J0295

== ENCOUNTER → 2018-06-11 13:10 | Outpatient (CLI) | payer MEDICARE, SELFPAY ==
[2018-05-13 15:07] VITALS: BMI 25.9
[2018-06-11 14:37] LABS: Anion Gap 10 (5-15); BUN 18 mg/dL (7-18); BUN/Creat Ratio 18.3 RATIO (10-20); Calcium,Total 8.5 mg/dL (8.5-10.1); Chloride 105 mmol/L (98-107); Creatinine, Serum 0.98 mg/dL (0.55-1.02); EST Glomerular Filtration Rate 58 mL/min (>60); Est Glom Filt Rate - Afr Amer 70 mL/min (>60); Glucose 94 mg/dL (74-106); Potassium 3.9 mmol/L (3.5-5.1); Sodium Level 142 mmol/L (136-145); T4 Free Direct 1.29 ng/dL (0.76-1.46); Thyroid Stim Hormone (TSH) 0.61 uIU/mL (0.358-3.74)
--- NOTE | 2018-06-11 14:40 | BD_ITS ---
STUDY: DUAL ENERGY X-RAY ABSORPTIOMETRY / DXA REASON FOR EXAM: Female, 77 years old. The patient is postmenopausal. TECHNIQUE: Bone Mineral Density (BMD) measurements of lumbar spine and bilateral hips were obtained. COMPARISON: None. FINDINGS: Lumbar Spine (L1-L4): g/cm2 (0.928) / T-score (-2.1) / Z-score (-0.3) Findings are suggestive of osteopenia with a high fracture risk. Increased thoracic kyphosis. Left Femur Total: g/cm2 (0.825) / T-score (-1.5) / Z-score (0.5) Left Femoral Neck: g/cm2 (0.864) / T-score (-1.3) / Z-score (0.9) Right Femur Total: g/cm2 (0.868) / T-score (-1.1) / Z-score (0.9) Right Femoral Neck: g/cm2 (0.863) / T-score (-1.3) / Z-score (0.9) BD/Dexa Bone Density Study IMPRESSION: The patient is considered osteopenic as outlined below according to World Lam Organization (WHO) criteria with a moderate fracture risk. Reference Information: The T-score is the number of standard deviations above or below the standard which is normal for young adults at their peak bone mineral density. The World Health Organization (WHO) interprets the T-scores as follows: Above -1 Normal bone density Between -1 and -2.5 Osteopenia Equal to / or below -2.5 Osteoporosis As a practical clinical guideline, osteopenia may be graded as follows: Mild -1 through -1.5 Moderate -1.6 through -2.0 Severe -2.1 through -2.4 The Z-score is the number of standard deviations above or below age-matched controls. A Z-score of less than -1.5 would be considered abnormal. References: 1. NIH Osteoporosis and Related Bone Diseases http://www.osteo.org 2. International Society for Clinical Densitometry http://www.iscd.org 3. National Osteoporosis Foundation http://www.nof.org Electronically Signed: Yong Velez, at 15:09 EST , Service support ,
== END ==
PROVIDERS: Family Provider Internal Medicine; PCP Internal Medicine; Referring Provider Internal Medicine; Visit Provider Internal Medicine
DX: M81.0 Age-related osteoporosis without current pathological fracture (principal); E03.9 Hypothyroidism, unspecified; E83.51 Hypocalcemia
CPT/HCPCS: 36415; 77080; 80048; 84439; 84443

== ENCOUNTER → 2019-04-30 09:30 | Outpatient (CLI) | payer MEDICARE, SELFPAY ==
[2019-04-30 09:01] VITALS: BMI 25.9
[2019-04-30 12:18] LABS: Absolute Lymphocyte Count 1.61 X10^3/uL (0.83-4.51); Absolute Neutrophil Count 3.6 X10^3/uL (2.0-7.7); Basophil# 0.04 X10^3/uL; Basophil% 0.7 % (0-1); Eosinophil# 0.09 X10^3/uL; Eosinophils% 1.5 % (0-5); Hematocrit 41.8 % (37-47); Hemoglobin 13.5 g/dL (12.0-15.0); Lymphocyte # 1.61 X10^3/ul (4.0); Lymphocyte % 26.7 % (19-41); Mean Corp Hgb Conc 32.3 g/dL (32-36); Mean Corpuscular Hgb 31.6 pg (27.0-32.0); Mean Corpuscular Volume 97.9 fL (81-99); Mean Platelet Vol. 10.3 fl (6.2-12.0); Monocyte# 0.68 X10^3/uL; Monocyte% 11.3 % (0-10); NRBC Flagged by Analyzer 0 % (0-5); Neutrophil # 3.61 X10^3/uL (2.7-7.7); Neutrophil % 59.6 % (47-70); Platelet Count 288 K/mm3 (150-450); RBC Distribution Width CV 13.2 % (11.6-14.6); RBC Distribution Width SD 47.7 fl (35.1-43.9); Red Blood Count 4.27 M/mm3 (4.2-5.4)
[2019-04-30 12:33] LABS: Vitamin D,25 Hydroxy 27.8 ng/mL (29.95-100.01)
[2019-04-30 13:14] LABS: ALB/GLOB Ratio 1.1 RATIO (0.9-2.4); AST(SGOT) 18 U/L (15-37); Alanine Aminotransfer ALT/SGPT 30 U/L (13-56); Albumin, Serum 3.8 g/dL (3.2-5.0); Alkaline Phosphatase 60 U/L (45-117); Anion Gap 9 (5-15); BUN 19 mg/dL (7-18); BUN/Creat Ratio 17.9 RATIO (10-20); Calcium,Total 9.6 mg/dL (8.5-10.1); Chloride 104 mmol/L (98-107); Creatinine, Serum 1.06 mg/dL (0.55-1.02); EST Glomerular Filtration Rate 53 mL/min (>60); Est Glom Filt Rate - Afr Amer 64 mL/min (>60); Globulin 3.5 g/dL (2.2-4.2); Glucose 91 mg/dL (74-106); Potassium 4.2 mmol/L (3.5-5.1); Protein, Total 7.3 g/dL (6.4-8.2); Sodium Level 139 mmol/L (136-145); Thyroid Stim Hormone (TSH) 0.28 uIU/mL (0.358-3.74)
== END ==
PROVIDERS: Family Provider Internal Medicine; PCP Internal Medicine; Visit Provider Internal Medicine
DX: E03.9 Hypothyroidism, unspecified (principal); M81.0 Age-related osteoporosis without current pathological fracture; I10 Essential (primary) hypertension
CPT/HCPCS: 36415; 80053; 82306; 84443; 85025

== ENCOUNTER → 2019-09-29 15:27 | Outpatient (CLI) | payer MEDICARE, SELFPAY ==
[2019-04-30 09:39] VITALS: BMI 25.9
--- NOTE | 2019-09-29 | LES_PTH ---
PATIENT: SETH HOLLIDAY LOC: [facility] U#:[id number] AGE/SX: 84/F ROOM: RE09/29/[address]: Dr. Ángel Daniel MD : 1940 BED: DIS: SPEC #: [id number] RECD: 09/29/19 15:24 STATUS: NACHO GE #: [id number] FRANKLYN: 09/29/19 00:[address]: Ángel Daniel DEPT: SURGICAL PATHOLOGY RECD BY: Tamara Yuan ENTERED: 09/30/19 08:59 SP TYPE: Lesion OTHR DR: Dr. Luis Winston MD Tissues: Skin of eyelid, NOS Procedures: Surgery Specimen Level IV HEADER OPERATION: Left lower lid excisional biopsy PRE-OP DIAGNOSIS: Possible seborrheic keratosis TISSUE SUBMITTED: Left lower eyelid lesion MICROSCOPIC DIAGNOSIS Lesion of left lower eyelid, biopsy: Polypoid actinic keratosis. Solar elastosis. Minimal chronic inflammation. AM:wilfrido 10/01/19 MICROSCOPIC DESCRIPTION Slides are reviewed. GROSS DESCRIPTION Received in fixative is one container labeled with the patient's name and designated LLL lesion. The specimen consists of an irregular piece of menchaca-brown skin measuring 1 x 0.7 cm and up to 0.3 cm in thickness. The specimen is inked, bisected and submitted entirely in one cassette. / SJ:wilfrido 09/30/19 TC:5 CPT: 74695
== END ==
PROVIDERS: PCP Internal Medicine; Referring Provider Ophthalmology; Visit Provider Ophthalmology
DX: L57.0 Actinic keratosis (principal); L57.8 Other skin changes due to chronic exposure to nonionizing radiation; H02.9 Unspecified disorder of eyelid
CPT/HCPCS: 88305

== ENCOUNTER → 2019-10-29 09:54 | Outpatient (CLI) | payer MEDICARE, SELFPAY ==
[2019-10-29 08:59] VITALS: BMI 25.9
[2019-10-29 13:42] LABS: Anion Gap 9 (5-15); BUN 19 mg/dL (7-18); BUN/Creat Ratio 18.4 RATIO (10-20); Calcium,Total 8.7 mg/dL (8.5-10.1); Chloride 102 mmol/L (98-107); Creatinine, Serum 1.03 mg/dL (0.55-1.02); EST Glomerular Filtration Rate 55 mL/min (>60); Est Glom Filt Rate - Afr Amer 66 mL/min (>60); Glucose 98 mg/dL (74-106); Potassium 4.1 mmol/L (3.5-5.1); Sodium Level 137 mmol/L (136-145); Thyroid Stim Hormone (TSH) 0.93 uIU/mL (0.358-3.74)
== END ==
PROVIDERS: PCP Internal Medicine; Referring Provider Internal Medicine; Visit Provider Internal Medicine
DX: E03.9 Hypothyroidism, unspecified (principal); I10 Essential (primary) hypertension
CPT/HCPCS: 36415; 80048; 84443

== ENCOUNTER → 2020-04-28 10:36 | Outpatient (CLI) | payer MEDICARE, SELFPAY ==
[2020-04-28 10:15] VITALS: BMI 24.9
[2020-04-28 12:24] LABS: Absolute Lymphocyte Count 1.67 X10^3/uL (0.83-4.51); Absolute Neutrophil Count 4.3 X10^3/uL (2.0-7.7); Basophil# 0.06 X10^3/uL; Basophil% 0.9 % (0-1); Eosinophil# 0.05 X10^3/uL; Eosinophils% 0.7 % (0-5); Hematocrit 41.8 % (37-47); Hemoglobin 14.1 g/dL (12.0-15.0); Lymphocyte # 1.67 X10^3/ul (4.0); Lymphocyte % 24.5 % (19-41); Mean Corp Hgb Conc 33.7 g/dL (32-36); Mean Corpuscular Hgb 32.7 pg (27.0-32.0); Mean Platelet Vol. 10.1 fl (6.2-12.0); Monocyte# 0.75 X10^3/uL; NRBC Flagged by Analyzer 0 % (0-5); Neutrophil # 4.26 X10^3/uL (2.7-7.7); Neutrophil % 62.6 % (47-70); Platelet Count 324 K/mm3 (150-450); RBC Distribution Width CV 13.2 % (11.6-14.6); RBC Distribution Width SD 47.7 fl (35.1-43.9); Red Blood Count 4.31 M/mm3 (4.2-5.4); White Blood Count 6.8 K/mm3 (4.4-11.0)
[2020-04-28 12:41] LABS: Vitamin D,25 Hydroxy 17.2 ng/mL
[2020-04-28 12:56] LABS: ALB/GLOB Ratio 1.1 RATIO (0.9-2.4); AST(SGOT) 14 U/L (15-37); Alanine Aminotransfer ALT/SGPT 24 U/L (13-56); Albumin, Serum 3.8 g/dL (3.2-5.0); Alkaline Phosphatase 62 U/L (45-117); Anion Gap 7 (5-15); BUN 20 mg/dL (7-18); BUN/Creat Ratio 16.5 RATIO (10-20); Calcium,Total 9.1 mg/dL (8.5-10.1); Chloride 102 mmol/L (98-107); Cholesterol 267 mg/dL (200); Creatinine, Serum 1.21 mg/dL (0.55-1.02); EST Glomerular Filtration Rate 45 mL/min (>60); Est Glom Filt Rate - Afr Amer 55 mL/min (>60); Globulin 3.6 g/dL (2.2-4.2); Glucose 94 mg/dL (74-106); High Density Lipoprotein 83 mg/dL; Potassium 4.1 mmol/L (3.5-5.1); Protein, Total 7.4 g/dL (6.4-8.2); Sodium Level 136 mmol/L (136-145); Thyroid Stim Hormone (TSH) 1.05 uIU/mL (0.358-3.74); Triglycerides 124 mg/dL; Very Low Density Lipoprotein 25 mg/dL (5-40)
== END ==
PROVIDERS: PCP Internal Medicine; Visit Provider Internal Medicine
DX: I10 Essential (primary) hypertension (principal); E03.9 Hypothyroidism, unspecified; M81.0 Age-related osteoporosis without current pathological fracture
CPT/HCPCS: 36415; 80053; 80061; 82306; 84443; 85025

== ENCOUNTER → 2020-10-25 10:41 | Outpatient (CLI) | payer MEDICARE, SELFPAY ==
[2020-10-25 10:03] VITALS: BMI 24.9
[2020-10-25 13:30] LABS: Anion Gap 7 (5-15); BUN 15 mg/dL (7-18); BUN/Creat Ratio 15.9 RATIO (10-20); Calcium,Total 9.3 mg/dL (8.5-10.1); Chloride 106 mmol/L (98-107); Creatinine, Serum 0.94 mg/dL (0.55-1.02); EST Glomerular Filtration Rate 61 mL/min (>60); Est Glom Filt Rate - Afr Amer 73 mL/min (>60); Glucose 96 mg/dL (74-106); Potassium 3.8 mmol/L (3.5-5.1); Sodium Level 140 mmol/L (136-145)
[2020-10-25 15:51] LABS: Vitamin D,25 Hydroxy 33.4 ng/mL
== END ==
PROVIDERS: PCP Internal Medicine; Referring Provider Internal Medicine; Visit Provider Internal Medicine
DX: M81.0 Age-related osteoporosis without current pathological fracture (principal); I10 Essential (primary) hypertension
CPT/HCPCS: 36415; 80048; 82306

== ENCOUNTER → 2020-11-17 09:09 | Outpatient (CLI) | payer MEDICARE, SELFPAY ==
[2020-04-28 10:15] VITALS: BMI 24.9
[2020-10-25 10:03] VITALS: BMI 24.9
--- NOTE | 2020-11-17 09:16 | BD_ITS ---
STUDY: DUAL ENERGY X-RAY ABSORPTIOMETRY / DXA REASON FOR EXAM: Female, 79 years old. Osteoporosis TECHNIQUE: Bone Mineral Density (BMD) measurements of lumbar spine and bilateral hips were obtained. COMPARISON: Comparison is made with prior examination dated 06/11/2018. FINDINGS: Lumbar Spine (L1-L4): g/cm2 (0.801) / T-score (-2.2) / Z-score (0.5) Findings are suggestive of osteopenia with a high fracture risk. Left Femur Total: g/cm2 (0.779) / T-score (-1.3) / Z-score (0.8) Left Femoral Neck: g/cm2 (0.702) / T-score (-1.3) / Z-score (1.1) Right Femur Total: g/cm2 (0.799) / T-score (-1.2) / Z-score (1.0) Right Femoral Neck: g/cm2 (0.704) / T-score (-1.3) / Z-score (1.1) The T-Scores on the most recent prior examination were: Lumbar Spine (L1-L4): There has been worsening of bone density since the previous examination. Left Femur Total: which represents an improvement of 2%. Right Femur Total: which represents a worsening of 0.9%. BD/Dexa Bone Density Study IMPRESSION: The patient is considered osteopenic as outlined below according to World Lam Organization (WHO) criteria with a high fracture risk. There has been worsening of bone density since the previous examination. Reference Information: The T-score is the number of standard deviations above or below the standard which is normal for young adults at their peak bone mineral density. The World Health Organization (WHO) interprets the T-scores as follows: Above -1 Normal bone density Between -1 and -2.5 Osteopenia Equal to / or below -2.5 Osteoporosis As a practical clinical guideline, osteopenia may be graded as follows: Mild -1 through -1.5 Moderate -1.6 through -2.0 Severe -2.1 through -2.4 The Z-score is the number of standard deviations above or below age-matched controls. A Z-score of less than -1.5 would be considered abnormal. References: 1. NIH Osteoporosis and Related Bone Diseases www osteo.org 2. International Society for Clinical Densitometry www iscd.org 3. National Osteoporosis Foundation www nof.org Electronically Signed: Yong Velez MD at 14:50 EDT , Service support ,
== END ==
PROVIDERS: PCP Internal Medicine; Referring Provider Internal Medicine; Visit Provider Internal Medicine
DX: M81.0 Age-related osteoporosis without current pathological fracture (principal)
CPT/HCPCS: 77080

== ENCOUNTER → 2020-12-09 14:00 | Outpatient (CLI) | payer MEDICARE, SELFPAY ==
[2020-12-09 14:59] LABS: Absolute Lymphocyte Count 1.44 X10^3/uL (0.83-4.51); Absolute Neutrophil Count 4.4 X10^3/uL (2.0-7.7); Basophil# 0.04 X10^3/uL; Basophil% 0.6 % (0-1); Eosinophil# 0.05 X10^3/uL; Eosinophils% 0.8 % (0-5); Hematocrit 41.6 % (37-47); Hemoglobin 13.2 g/dL (12.0-15.0); Lymphocyte # 1.44 X10^3/ul (0.83-4.51); Lymphocyte % 22.1 % (19-41); Mean Corp Hgb Conc 31.7 g/dL (32-36); Mean Corpuscular Hgb 31.6 pg (27.0-32.0); Mean Corpuscular Volume 99.5 fL (81-99); Mean Platelet Vol. 9.9 fl (6.2-12.0); Monocyte# 0.62 X10^3/uL; Monocyte% 9.5 % (0-10); NRBC Flagged by Analyzer 0 % (0-5); Neutrophil # 4.36 X10^3/uL (2.7-7.7); Neutrophil % 66.8 % (47-70); Platelet Count 300 K/mm3 (150-450); RBC Distribution Width CV 13.4 % (11.6-14.6); RBC Distribution Width SD 49.1 fl (35.1-43.9); Red Blood Count 4.18 M/mm3 (4.2-5.4); White Blood Count 6.5 K/mm3 (4.4-11.0)
[2020-12-09 15:11] LABS: Anion Gap 6 (5-15); BUN 19 mg/dL (7-18); BUN/Creat Ratio 16.7 RATIO (10-20); Calcium,Total 9.3 mg/dL (8.5-10.1); Chloride 105 mmol/L (98-107); Creatinine, Serum 1.14 mg/dL (0.55-1.02); EST Glomerular Filtration Rate 49 mL/min (>60); Est Glom Filt Rate - Afr Amer 59 mL/min (>60); Glucose 106 mg/dL (74-106); Potassium 4.1 mmol/L (3.5-5.1); Sodium Level 140 mmol/L (136-145)
== END ==
PROVIDERS: PCP Internal Medicine; Referring Provider Physician Assistant; Visit Provider Physician Assistant
DX: Z01.818 Encounter for other preprocedural examination (principal); I10 Essential (primary) hypertension
CPT/HCPCS: 36415; 80048; 85025

== ENCOUNTER → 2020-12-10 08:32 | Outpatient (CLI) | payer MEDICARE, SELFPAY ==
--- NOTE | 2020-12-10 08:36 | EKG12_ITS ---
Test Reason : PRE OP Blood Pressure : / mmHG Vent. Rate : 080 BPM Atrial Rate : 080 BPM P-R Int : 148 ms QRS Dur : 074 ms QT Int : 366 ms P-R-T Axes : 069 047 077 degrees QTc Int : 422 ms Normal sinus rhythm Septal infarct , age undetermined Abnormal ECG Confirmed by IRAIS GUTHRIE, CRISTINO ([id number]), society editor MILTON MARRERO ([id number]) on 12/13/2020 9:37:12 AM Referred By: Isis Cruz Confirmed By:CRISTINO BRAXTON MD
== END ==
PROVIDERS: PCP Internal Medicine; Referring Provider Physician Assistant; Visit Provider Physician Assistant
DX: Z01.818 Encounter for other preprocedural examination (principal)
CPT/HCPCS: 93005

== ENCOUNTER 2021-01-17 12:00 | Emergency (ER) | payer MEDICARE, SELFPAY ==
[2021-01-17 12:01] VITALS: BP 128/76; PULSE 113; RESP 16; TEMP 36.3; O2SAT 98; BMI 25.4
--- NOTE | 2021-01-17 12:21 | VDLE_ITS ---
Reason For Study: Swelling RIGHT LEFT CFV is compressible, spontaneous, phasic, CFV is compressible, spontaneous, phasic, competent and demonstrates normal competent, and demonstrates normal augmentation. augmentation. FV is compressible, spontaneous, phasic, competent and demonstrates normal augmentation. POP V is compressible, spontaneous, phasic, competent and demonstrates normal augmentation. T/P Trunk is compressible. PTV is compressible. RT PerV is compressible. Acute superficial vein thrombosis is noted in the rigth SSV and GSV at knee. Thrombus filled varicose veins noted in the right posterior prox-mid calf. Procedure This is a venous duplex using B-mode, color flow and spectral Doppler. Exam performed in department. A preliminary report was called and/or faxed to ED. VL/Venous Duplex US, Unilateral Interpretation Summary There is no evidence of right lower extremity deep vein thrombosis. Superficial thrombophlebitis right small saphenous vein and great saphenous vein at the knee with superficia l thrombophlebitis involving varicose veins right proximal posterior calf Normal flow patterns left common femoral vein Ordering Physician: Prince Villalta Referring Physician: Luis Winston Performed By: Marsha Moreno RVT
--- NOTE | 2021-01-17 15:54 | ED.VIS.LOWEX ---
HPI History of Present Illness HPI Narrative: Patient is with right calf pain that has been getting worse over the past 4 days. Patient describes her pain is stabbing. Patient states it is over the posterior aspect of the right calf and popliteal area. Patient states it is worse whenever she palpates the area. Patient states it is better when she keeps her leg elevated. Patient denies any paresthesias or weakness. Patient called her primary care physician today who referred her to the emergency department for possible DVT. Chief Complaint: Lower Extremity Injury Informant: patient Onset/Context/Timing Onset: Days (4) Context: Gradual Onset Timing: Continuous Quality of Pain: Stabbing Worsened by: Palpation Relieved by: Elevation Associated Symptoms Associated Symptoms: Negative for Parasthesia, Weakness and Loss of Funtion PFSH PFSH Medical History Cataracts, bilateral Cerumen impaction History of DVT (deep vein thrombosis) Osteoarthritis Osteoporosis Thyroid disease Home Medications acetaminophen 325 mg tablet 325 mg PO DAILY PRN tab 05/13/18 [History Last Taken Unknown] valsartan 80 mg-hydrochlorothiazide 12.5 mg tablet 1 tab PO DAILY #90 tab 04/29/20 [Rx Last Taken Unknown] cholecalciferol (vitamin D3) 125 mcg (5,000 unit) tablet 125 mcg PO DAILY #90 tab 10/26/20 [Rx Last Taken Unknown] levothyroxine 75 mcg tablet 75 mcg PO DAILY #90 tab 10/26/20 [Rx Last Taken Unknown] Allergy/AdvReac Type Severity Reaction Status Date / Time ciprofloxacin [From Cipro] Allergy ARM PAIN Verified 12/09/20 13:33 AND GI UPSET nitrofurantoin Allergy Chest Verified 12/09/20 13:33 [From Macrodantin] tightness terbinafine AdvReac Diarrhea Verified 12/09/20 13:33 Family History Father COPD (chronic obstructive pulmonary disease) Alcoholism Mother Asthma blood clots Osteoporosis Brother COPD (chronic obstructive pulmonary disease) Alcoholism Cancer melanoma Seizures Osteoporosis Diabetes Grandmother Hypertension CVA (cerebral vascular accident) Cancer liver Surgical History History of bilateral tubal ligation History of cystoscopy History of dental surgery History of dilation and curettage Social History Smoking Status: Never smoker alcohol intake: never substance use type: does not use what type of physical activity do you participate in: walking frequency: daily additional social history: DOES NOT USE IBUPROFEN DOES USE ASPIRIN ROS ROS ED Constitutional Constitutional ED: Denies chills or fever(s) Eyes Eyes: Denies blurry vision or change in vision ENT ENT ED: Denies rhinorrhea or sore throat Cardiovascular Cardiovascular: Denies chest pain or palpitations Respiratory/Chest Respiratory/Chest: Denies cough or dyspnea Gastrointestinal Gastrointestinal: Denies nausea or vomiting Genitourinary Genitourinary ED: Denies dysuria or hematuria Musculoskeletal Musculoskeletal: Denies back pain or neck pain Integumentary Denies abscess or rash Neurologic Neurologic: Denies headache(s) or weakness Allergic/Immunologic Allergic/Immunologic ED: Denies mouth swelling or urticaria EXAM Physical Exam Const Vital Signs: 01/17/21 12:01 Temperature 97.4 F L Temperature Source Temporal Pulse Rate 113 H Respiratory Rate 16 Blood Pressure 128/76 H Blood Pressure Mean 93 Pulse Ox 98 Oxygen Delivery Method Room Air Positive well nourished and well developed General Appearance ED: well developed HEENT Reports moist mucous membranes Neck full ROM and supple Extremity Extremity Narrative: There is erythema and tenderness over the posterior aspect of the right proximal calf and popliteal fossa there is no tenderness of the calf distally. There is full range of motion. There is no fluctuance. Neuro oriented x3, CN's II-XII intact bilaterally, moves all extremities and no sensory deficits noted Sensorium / Orientation: alert Motor Exam: strength 5/5 throughout Psych mental status grossly normal MDM MDM MDM Narrative Medical decision making narrative: Venous duplex of the little right lower extremity was obtained. There is superficial vein thrombosis in the superficial saphenous vein and greater saphenous vein at the knee. There is thrombus filled varicose veins noted the right posterior proximal to mid calf. Patient was advised of her findings. Patient was instructed to use warm compresses to the area. Patient was instructed to keep her leg elevated. Patient was instructed to follow-up with her primary care physician in 5 to 7 days. Patient understood and was agreeable with the plan. All questions were answered. Discharge Plan Triage Chief Complaint: Lower Extremity Injury ED Provider: John Rahman Dx/Rx/DC Orders Clinical Impression: Superficial thrombophlebitis of right leg Instructions: ED Thrombophlebitis, Superficial Prescriptions: No Action acetaminophen 325 mg tablet 325 mg PO DAILY PRN (Reason: Mild Pain (1-3)/Temp > 100.7 F) RF: 0 valsartan-hydrochlorothiazide 80-12.5 mg tablet 1 tab PO DAILY Qty: 90 RF: 3 cholecalciferol (vitamin D3) 125 mcg (5,000 unit) tablet 125 mcg PO DAILY Qty: 90 RF: 3 levothyroxine 75 mcg tablet 75 mcg PO DAILY Qty: 90 RF: 1 Primary Care Provider: Luis Winston Referrals: Luis Winston MD [Primary Care Provider] - 3-5 Days Disposition Disposition: Home, Self Care
== END 2021-01-17 16:09 | disposition home or self-care (01) ==
PROVIDERS: Emergency Provider Emergency Medicine; PCP Internal Medicine
DX: I80.01 Phlebitis and thrombophlebitis of superficial vessels of right lower extremity (principal); Z86.718 Personal history of other venous thrombosis and embolism
CPT/HCPCS: 93971; 99282

== ENCOUNTER → 2021-10-19 | Outpatient (CLI) | payer MEDICARE, SELFPAY ==
[2021-10-19 12:41] LABS: Vitamin D,25 Hydroxy 37.3 ng/mL
[2021-10-19 12:47] LABS: Anion Gap 5 (5-15); BUN 21 mg/dL (7-18); BUN/Creat Ratio 21.3 RATIO (10-20); Calcium,Total 9.1 mg/dL (8.5-10.1); Chloride 106 mmol/L (98-107); Creatinine, Serum 0.99 mg/dL (0.55-1.02); EST Glomerular Filtration Rate 57 mL/min (>60); Est Glom Filt Rate - Afr Amer 69 mL/min (>60); Glucose 105 mg/dL (74-106); Potassium 4.4 mmol/L (3.5-5.1); Sodium Level 138 mmol/L (136-145); Thyroid Stim Hormone (TSH) 1.08 uIU/mL (0.358-3.74)
== END | disposition home or self-care (01) ==
LOC: BIMLAB 09:20
PROVIDERS: PCP Internal Medicine; Referring Provider Internal Medicine; Visit Provider Internal Medicine
DX: I10 Essential (primary) hypertension (principal); M81.0 Age-related osteoporosis without current pathological fracture
CPT/HCPCS: 36415; 80048; 82306; 84443

== ENCOUNTER → 2022-03-20 | Outpatient (CLI) | payer MEDICARE, SELFPAY ==
[2022-03-20 16:39] LABS: Absolute Lymphocyte Count 1.58 X10^3/uL (0.83-4.51); Absolute Neutrophil Count 5.2 X10^3/uL (2.0-7.7); Basophil# 0.04 X10^3/uL; Basophil% 0.5 % (0-1); Eosinophils% 1.3 % (0-5); Hemoglobin 13.9 g/dL (12.0-15.0); Lymphocyte # 1.58 X10^3/ul (0.83-4.51); Lymphocyte % 20.9 % (19-41); Mean Corp Hgb Conc 33.1 g/dL (32-36); Mean Corpuscular Hgb 32.5 pg (27.0-32.0); Mean Corpuscular Volume 98.1 fL (81-99); Monocyte# 0.66 X10^3/uL; Monocyte% 8.7 % (0-10); NRBC Flagged by Analyzer 0 % (0-5); Neutrophil # 5.16 X10^3/uL (2.7-7.7); Neutrophil % 68.2 % (47-70); Platelet Count 279 K/mm3 (150-450); RBC Distribution Width CV 13.9 % (11.6-14.6); RBC Distribution Width SD 50.2 fl (35.1-43.9); Red Blood Count 4.28 M/mm3 (4.2-5.4); White Blood Count 7.6 K/mm3 (4.4-11.0)
[2022-03-20 17:09] LABS: ALB/GLOB Ratio 1.1 RATIO (0.9-2.4); AST(SGOT) 11 U/L (15-37); Alanine Aminotransfer ALT/SGPT 22 U/L (13-56); Albumin, Serum 3.5 g/dL (3.2-5.0); Alkaline Phosphatase 67 U/L (45-117); Anion Gap 8 (5-15); BUN 20 mg/dL (7-18); BUN/Creat Ratio 17.1 RATIO (10-20); Calcium,Total 9.3 mg/dL (8.5-10.1); Chloride 106 mmol/L (98-107); Cholesterol 245 mg/dL (200); Creatinine, Serum 1.17 mg/dL (0.55-1.02); EST Glomerular Filtration Rate 47 mL/min (>60); Est Glom Filt Rate - Afr Amer 57 mL/min (>60); Globulin 3.3 g/dL (2.2-4.2); Glucose 113 mg/dL (74-106); High Density Lipoprotein 82 mg/dL; Potassium 4.5 mmol/L (3.5-5.1); Protein, Total 6.8 g/dL (6.4-8.2); Sodium Level 140 mmol/L (136-145); Thyroid Stim Hormone (TSH) 1.27 uIU/mL (0.358-3.74); Triglycerides 173 mg/dL; Very Low Density Lipoprotein 35 mg/dL (5-40)
== END | disposition home or self-care (01) ==
LOC: BIMLAB 14:36
PROVIDERS: PCP Internal Medicine; Referring Provider Internal Medicine; Visit Provider Internal Medicine
DX: I10 Essential (primary) hypertension (principal)
CPT/HCPCS: 36415; 80053; 80061; 84443; 85025

== ENCOUNTER → 2022-09-18 | Outpatient (CLI) | payer MEDICARE, SELFPAY ==
[2022-09-18 12:33] LABS: Anion Gap 2 (5-15); BUN 16 mg/dL (7-18); BUN/Creat Ratio 17.7 RATIO (10-20); Calcium,Total 9.1 mg/dL (8.5-10.1); Chloride 108 mmol/L (98-107); Creatinine, Serum 0.91 mg/dL (0.55-1.02); EST Glomerular Filtration Rate 63 mL/min (>60); Est Glom Filt Rate - Afr Amer 76 mL/min (>60); Glucose 94 mg/dL (74-106); Potassium 5.1 mmol/L (3.5-5.1); Sodium Level 136 mmol/L (136-145)
== END | disposition home or self-care (01) ==
LOC: BIMLAB 09:53
PROVIDERS: PCP Internal Medicine; Visit Provider Internal Medicine
DX: I10 Essential (primary) hypertension (principal)
CPT/HCPCS: 36415; 80048

== ENCOUNTER 2022-09-27 13:00 | Outpatient (RCR) | payer MEDICARE, SELFPAY ==
--- NOTE | 2022-09-21 07:43 | HP.OTEVAL ---
Patient's Visit Information SETH HOLLIDAY is a 81 year old F, referred to Occupational Therapy by Dr. Luis Winston MD, with a diagnosis of OA bilateral hands. Date of Evaluation: 09/20/22 Occupational Therapist: Belkys Leon, OTR/[place], CHT - Subjective This 81 year old female was seen for OT eval with dx of OA deformities/ RA?. pt states she has had a long hx of deformities but in the last three months has noticed increase difficulty with daily use of her right hand feels weaker. pt denies pain. pt active with outside home mtg, split and stack firewood- trim and keep her garden going- is active in katie, sewing as well as cooking and driving. pt states no strength in her right hand but left does not have any. - ADLs Yard: [place], Use shovel, Use pruners Comments: carry 2 gallon water buckets Miscellaneous: Sew - ROM MP: right IF -70/ MF -70 RF-70 LF -75 ROM Comments: right IF DIP deviating 15* radially. right IF MP deviation 15* ulnar deviation. right MF MP ulnar deviation 35* with proximal phalanx subluxation. right RF MP ulnar deviation 35* with proximal phalanx subluxation. right LF MP ulnar deviation 30* with proximal phalanx subluxation. right hand pt demo full composite fist. 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 by d.c Goal:: Pt will demo understanding of joint protection and ergonomics when performing BADLs and IADLs by d/c. Pt will demo understanding of adaptive Equipment use to decrease stress on joints to allow pt to perform BADSL and IADLS at CATA level. Pt will demo understanding of work/lifting and carry ergonomics to decrease stress on tendons to increase pts independent with ADLs, IADLS and work tasks by d/c. - Rehabilitation General Assessment: pt arrives with bilateral OA deformities in both hands- right more than left- pt demo with weakness limiting pts IND. with her home mtg. PT would benefit from skilled OT services 2-3 visits for ed. on joint protection padmini. adaptive equipment and possible use of bracing to decrease ulna drift of right MCPJs. During this session therapist showed pt 3 different ulna drift braces, pt did try one on but felt is would hinder her mobility and use of her hand while it was on. Therapist agreed- pt demo with strong ulna drift with proximal phalanx subluxation. Therapist will ed. pt on adaptive equipment and joint protection to decrease stress on joints and tendons due to deformities. pt demo understanding and agree to POC. Rehabilitation Potential: Questionable - Anticipated Interventions Strengthening, Triggerpoint Release, Modalities, Orthoses, Joint Protection/Energy Conservation, Fine Motor Coord/Joe, Education re assistive Equipment, Education re Diagnosis, Home Program - Visit Plan Frequency: 1x/Week Duration: 3 Weeks TEXT: Thank you for the opportunity to evaluate your patient. For Medicare and Medicare HMO plans, please review the plan of care and approve it. It will need to be FAXED BACK to us at [phone] for Medicare purposes. Please let me know if there are questions or concerns regarding this plan of care. Physician Signature: Date:
--- NOTE | 2022-09-27 15:47 | HP.OTDCSUM ---
It has been my pleasure to treat SETH HOLLIDAY under orders from Dr. Luis Winston MD, for the diagnosis of OA bilateral hands for a total of 2 visit(s). Please see the following information for a summary of their discharge status. % Improvement: 0 Patient Goals: Regain Strength, Be More Independent in ADLS, Resume Former Household Responsibilities (Cooking,Cleaning,Yard, etc.) Other: possible use of bracing to decrease deformity Goal:: pt will demo a increase in right director oncology strength by 5# to increase pts ind.with home mtg. by d.c Goal:: Pt will demo understanding of joint protection and ergonomics when performing BADLs and IADLs by d/c. Pt will demo understanding of adaptive Equipment use to decrease stress on joints to allow pt to perform BADSL and IADLS at CATA level. Pt will demo understanding of work/lifting and carry ergonomics to decrease stress on tendons to increase pts independent with ADLs, IADLS and work tasks by d/c. Plan: D/C Discharge Comments: pt was seen for 2 OT sessions ed. pt on joint protection, adaptions to decrease stress on joints as well as ad. eq. Together we trialed a number of ulnar drift orthosis but pt was not receptive to using - felt they hindered her function vs helped it. Pt was appreciative of the tasks she was given to strength and ad. eq. to increase function. pt states she will call with questions or concerns. If there are questions or concerns regarding this patient's occupational therapy, please fell free to call me at [phone]. Thank you for the referral of this patient. Sincerely, Belkys Leon, OTR/L, CHT
== END 2022-09-27 19:00 | disposition home or self-care (01) ==
LOC: OT 13:00
PROVIDERS: PCP Internal Medicine; Visit Provider Internal Medicine
DX: M19.90 Unspecified osteoarthritis, unspecified site (principal)
CPT/HCPCS: 97166; 97530

== ENCOUNTER → 2022-11-21 | Outpatient (CLI) | payer MEDICARE, SELFPAY ==
--- NOTE | 2022-11-21 12:48 | BD_ITS ---
STUDY: DUAL ENERGY X-RAY ABSORPTIOMETRY / DXA REASON FOR EXAM: Female, 81 years old. Osteoporosis TECHNIQUE: Bone Mineral Density (BMD) measurements of lumbar spine and bilateral hips were obtained. COMPARISON: Comparison is made with prior study November 17, 2020. FINDINGS: Lumbar Spine (L1-L4): g/cm2 (0.789) / T-score (-2.3) / Z-score (0.5) Findings are suggestive of osteopenia with a high fracture risk. Left Femur Total: g/cm2 (0.769) / T-score (-1.4) / Z-score (0.9) Left Femoral Neck: g/cm2 (0.730) / T-score (-1.1) / Z-score (1.4) Right Femur Total: g/cm2 (0.791) / T-score (-1.2) / Z-score (1.0) Right Femoral Neck: g/cm2 (0.663) / T-score (-1.7) / Z-score (0.8) The T-Scores on the most recent prior examination were: Lumbar Spine (L1-L4): There has been worsening of bone density since the previous examination. Left Femur Total: which represents a worsening of 1.4%. Right Femur Total: which represents a worsening of 0.9%. BD/Dexa Bone Density Study IMPRESSION: The patient is considered osteopenic as outlined below according to World Lam Organization (WHO) criteria with a high fracture risk. There has been worsening of bone density since the previous examination. Reference Information: The T-score is the number of standard deviations above or below the standard which is normal for young adults at their peak bone mineral density. The World Health Organization (WHO) interprets the T-scores as follows: Above -1 Normal bone density Between -1 and -2.5 Osteopenia Equal to / or below -2.5 Osteoporosis As a practical clinical guideline, osteopenia may be graded as follows: Mild -1 through -1.5 Moderate -1.6 through -2.0 Severe -2.1 through -2.4 The Z-score is the number of standard deviations above or below age-matched controls. A Z-score of less than -1.5 would be considered abnormal. References: 1. NIH Osteoporosis and Related Bone Diseases www osteo.org 2. International Society for Clinical Densitometry www iscd.org 3. National Osteoporosis Foundation www nof.org Electronically Signed: Yong Velez MD at 9:55 EDT ,
== END | disposition home or self-care (01) ==
LOC: OPBD 12:43
PROVIDERS: PCP Internal Medicine; Referring Provider Internal Medicine; Visit Provider Internal Medicine
DX: Z13.820 Encounter for screening for osteoporosis (principal); M81.0 Age-related osteoporosis without current pathological fracture
CPT/HCPCS: 77080

== ENCOUNTER → 2023-03-21 | Outpatient (CLI) | payer MEDICARE, SELFPAY ==
[2023-03-21 12:20] LABS: Absolute Lymphocyte Count 1.62 X10^3/uL (0.83-4.51); Absolute Neutrophil Count 4.3 X10^3/uL (2.0-7.7); Basophil# 0.05 X10^3/uL; Basophil% 0.7 % (0-1); Eosinophil# 0.13 X10^3/uL; Eosinophils% 1.9 % (0-5); Hematocrit 41.9 % (37-47); Hemoglobin 13.2 g/dL (12.0-15.0); Lymphocyte # 1.62 X10^3/ul (0.83-4.51); Lymphocyte % 23.5 % (19-41); Mean Corp Hgb Conc 31.5 g/dL (32-36); Mean Corpuscular Hgb 31.8 pg (27.0-32.0); Mean Platelet Vol. 10.1 fl (6.2-12.0); Monocyte# 0.78 X10^3/uL; Monocyte% 11.3 % (0-10); NRBC Flagged by Analyzer 0 % (0-5); Neutrophil # 4.28 X10^3/uL (2.7-7.7); Neutrophil % 62.2 % (47-70); Platelet Count 333 K/mm3 (150-450); RBC Distribution Width CV 13.8 % (11.6-14.6); RBC Distribution Width SD 51.1 fl (35.1-43.9); Red Blood Count 4.15 M/mm3 (4.2-5.4); White Blood Count 6.9 K/mm3 (4.4-11.0)
[2023-03-21 12:49] LABS: Vitamin D,25 Hydroxy 82.3 ng/mL
[2023-03-21 13:01] LABS: AST(SGOT) 14 U/L (15-37); Alanine Aminotransfer ALT/SGPT 20 U/L (13-56); Albumin, Serum 3.5 g/dL (3.2-5.0); Alkaline Phosphatase 63 U/L (45-117); Anion Gap 5 (5-15); BUN 18 mg/dL (7-18); BUN/Creat Ratio 16.5 RATIO (10-20); Calcium,Total 9.1 mg/dL (8.5-10.1); Chloride 108 mmol/L (98-107); Cholesterol 252 mg/dL (200); Creatinine, Serum 1.09 mg/dL (0.55-1.02); EST Glomerular Filtration Rate 51 mL/min (>60); Est Glom Filt Rate - Afr Amer 62 mL/min (>60); Globulin 3.4 g/dL (2.2-4.2); Glucose 98 mg/dL (74-106); High Density Lipoprotein 91 mg/dL; Potassium 4.5 mmol/L (3.5-5.1); Protein, Total 6.9 g/dL (6.4-8.2); Sodium Level 138 mmol/L (136-145); Thyroid Stim Hormone (TSH) 1.39 uIU/mL (0.358-3.74); Triglycerides 116 mg/dL; Very Low Density Lipoprotein 23 mg/dL (5-40)
== END | disposition home or self-care (01) ==
LOC: BIMLAB 09:56
PROVIDERS: PCP Internal Medicine; Referring Provider Internal Medicine; Visit Provider Internal Medicine
DX: E03.9 Hypothyroidism, unspecified (principal); I10 Essential (primary) hypertension; M81.0 Age-related osteoporosis without current pathological fracture
CPT/HCPCS: 36415; 80053; 80061; 82306; 84443; 85025

== ENCOUNTER → 2023-10-05 | Outpatient (CLI) | payer MEDICARE, SELFPAY | END | disposition home or self-care (01) | LOC: BIMLAB 10:27 | PROVIDERS: PCP Internal Medicine; Referring Provider Internal Medicine; Visit Provider Internal Medicine | DX: I10 Essential (primary) hypertension (principal); E03.9 Hypothyroidism, unspecified | CPT/HCPCS: 36415; 80053; 84443; 85025 ==

== ENCOUNTER → 2023-10-08 | Outpatient (CLI) | payer MEDICARE, SELFPAY ==
[2023-10-08 15:31] LABS: Absolute Neutrophil Count 5.3 X10^3/uL (2.0-7.7); Basophil# 0.04 X10^3/uL; Basophil% 0.5 % (0-1); Eosinophil# 0.07 X10^3/uL; Eosinophils% 0.9 % (0-5); Hematocrit 39.1 % (37-47); Hemoglobin 12.6 g/dL (12.0-15.0); Lymphocyte % 21.9 % (19-41); Mean Corp Hgb Conc 32.2 g/dL (32-36); Mean Corpuscular Volume 99.2 fL (81-99); Mean Platelet Vol. 10.2 fl (6.2-12.0); Monocyte# 0.66 X10^3/uL; Monocyte% 8.5 % (0-10); NRBC Flagged by Analyzer 0 % (0-5); Neutrophil # 5.29 X10^3/uL (2.7-7.7); Neutrophil % 67.9 % (47-70); Platelet Count 317 K/mm3 (150-450); RBC Distribution Width CV 13.4 % (11.6-14.6); RBC Distribution Width SD 49.1 fl (35.1-43.9); Red Blood Count 3.94 M/mm3 (4.2-5.4); White Blood Count 7.8 K/mm3 (4.4-11.0)
[2023-10-08 17:06] LABS: ALB/GLOB Ratio 1.1 RATIO (0.9-2.4); AST(SGOT) 16 U/L (15-37); Alanine Aminotransfer ALT/SGPT 22 U/L (13-56); Albumin, Serum 3.5 g/dL (3.2-5.0); Alkaline Phosphatase 54 U/L (45-117); Anion Gap 7 (5-15); BUN 17 mg/dL (7-18); BUN/Creat Ratio 17.1 RATIO (10-20); Calcium,Total 9.3 mg/dL (8.5-10.1); Chloride 107 mmol/L (98-107); Creatinine, Serum 0.99 mg/dL (0.55-1.02); EST Glomerular Filtration Rate 56 mL/min (>60); Est Glom Filt Rate - Afr Amer 68 mL/min (>60); Globulin 3.1 g/dL (2.2-4.2); Glucose 88 mg/dL (74-106); Potassium 4.1 mmol/L (3.5-5.1); Protein, Total 6.6 g/dL (6.4-8.2); Sodium Level 140 mmol/L (136-145)
== END | disposition home or self-care (01) ==
LOC: BIMLAB 12:56
PROVIDERS: PCP Internal Medicine; Visit Provider Nurse Practitioner
DX: I10 Essential (primary) hypertension (principal); E03.9 Hypothyroidism, unspecified
CPT/HCPCS: 80053; 84443; 85025

== ENCOUNTER → 2024-03-21 | Outpatient (CLI) | payer MEDICARE, SELFPAY ==
[2024-03-21 12:49] LABS: Anion Gap 5 (5-15); BUN 18 mg/dL (7-18); BUN/Creat Ratio 17.8 RATIO (10-20); Calcium,Total 9.2 mg/dL (8.5-10.1); Chloride 108 mmol/L (98-107); Cholesterol 275 mg/dL (200); Creatinine, Serum 1.01 mg/dL (0.55-1.02); EST Glomerular Filtration Rate 55 mL/min (>60); Est Glom Filt Rate - Afr Amer 67 mL/min (>60); Glucose 98 mg/dL (74-106); High Density Lipoprotein 90 mg/dL; Sodium Level 140 mmol/L (136-145); Triglycerides 121 mg/dL; Very Low Density Lipoprotein 24 mg/dL (5-40)
[2024-03-21 13:46] LABS: Vitamin D,25 Hydroxy 74.5 ng/mL
== END | disposition home or self-care (01) ==
LOC: BIMLAB 09:56
PROVIDERS: PCP Internal Medicine; Referring Provider Internal Medicine; Visit Provider Internal Medicine
DX: I10 Essential (primary) hypertension (principal); M81.0 Age-related osteoporosis without current pathological fracture; E03.9 Hypothyroidism, unspecified; E78.5 Hyperlipidemia, unspecified
CPT/HCPCS: 36415; 80048; 80061; 82306; 84443

== ENCOUNTER → 2025-03-26 | Outpatient (CLI) | payer MEDICARE, SELFPAY ==
[2025-03-26 12:29] LABS: Hematocrit 41.2 % (37-47); Hemoglobin 13.2 g/dL (12.0-15.0); Immature Granulocytes Count 0.010 X10^3/uL (0.0-0.0); Mean Corp Hgb Conc 32.0 g/dL (32-36); Mean Corpuscular Volume 98.1 fL (81-99); Mean Platelet Vol. 9.9 fl (6.2-12.0); NRBC Flagged by Analyzer 0 % (0-5); Platelet Count 318 K/mm3 (150-450); RBC Distribution Width CV 13.4 % (11.6-14.6); RBC Distribution Width SD 48.3 fl (35.1-43.9); Red Blood Count 4.20 M/mm3 (4.2-5.4); White Blood Count 5.5 K/mm3 (4.4-11.0)
[2025-03-26 12:59] LABS: AST(SGOT) 18 U/L (<=31); Alanine Aminotransfer ALT/SGPT 13 U/L (<=34); Albumin, Serum 4.1 g/dL (3.4-4.8); Alkaline Phosphatase 57 U/L (35-104); Anion Gap 11 (5-15); BUN 18 mg/dL (4-19); BUN/Creat Ratio 20.7 RATIO (10-20); CRP < 3.00 mg/L (0.0-3.0); Calcium,Total 9.0 mg/dL (7.6-11.0); Carbon Dioxide 24.0 mmol/L (21.0-32.0); Chloride 104 mmol/L (98-108); Cholesterol 240 mg/dL (<=200); Globulin 2.7 g/dL (2.2-4.2); Glucose 90 mg/dL (70-99); Low Density Lipoprotein Calc. 134 mg/dL; Potassium 4.0 mmol/L (3.3-5.1); Triglycerides 128 mg/dL; Very Low Density Lipoprotein 26 mg/dL (5-40); Vitamin D,25 Hydroxy 94.7 ng/mL (30-100); cholesterol:hdl ratio screen 2.86
== END | disposition home or self-care (01) ==
LOC: MTLAB 09:43
PROVIDERS: PCP Internal Medicine; Referring Provider Internal Medicine; Visit Provider Internal Medicine
DX: E78.5 Hyperlipidemia, unspecified (principal); E03.9 Hypothyroidism, unspecified; I10 Essential (primary) hypertension; M81.0 Age-related osteoporosis without current pathological fracture; M19.90 Unspecified osteoarthritis, unspecified site
CPT/HCPCS: 36415; 80053; 80061; 82306; 84443; 85025; 85652; 86140; 86200; 86431